=== PATIENT | male | born 1965 | race African-American/Black ===

== ENCOUNTER → 2016-03-17 | Day surgery (SDC) | payer OTHER ==
[2016-03-17] VITALS (8 sets, daily range): BP systolic 119–158; BP diastolic 47–97
[~2016-03-17] VITALS: Ht 198.1 cm; Wt 88.5 kg
[~2016-03-17] MED LIST: LR 1000ml 1,000 ML IVLG SCH; LR 1000ml ONE; Lidocaine 1% MPF 10mg/ml 5ml ONE; MEGA MULTI FOR1 EAC1 PO; Propofol 10mg/ml 20ml IV ONE
--- NOTE | 2016-03-17 08:49 | Short Stay Surgery H&P ---
History of Present Illness History of Present Illness Chief Complaint see H&P HPI Alan Garcia is a 50 year old male who was admitted on for Colon Screening Patient History Allergies: Coded Allergies: NO KNOWN ALLERGIES (Verified Allergy, Unknown, 03/17/16) PAST MEDICAL HISTORY: Past Surgeries: Social History: Medication History Scheduled Mv-Mn/Fa/Lycopene/Lut/Hb#178 (Neto Multi For Men Tablet), 1 EACH PO DAILY, ( Reported) Physical Exam Vital Signs Last Vital Signs Date Time Temp Pulse Resp B/P Pulse Ox O2 Delivery O2 Flow Rate FiO2 03/17/16 07:37 98.2 69 17 149/88 98 Room Air Plan Attestation Are the patient's medical conditions optimized for surgery? DENNIS HODGES Mar 17, 2016 08:49
--- NOTE | 2016-03-17 08:50 | Pre-Procedure Note/Attestation ---
Pre-Procedure Note/Attestation Complete Prior to Procedure Planned Procedure: not applicable Procedure Narrative: EGD/Colon Indications for Procedure Pre-Operative Diagnosis: Heme (+), screen Attestation I attest that I discussed the nature of the procedure; its benefits; risks and complications; and alternatives (and the risks and benefits of such alternatives ), prior to the procedure, with the patient (or the patient's legal support representative). I attest that, if there was a reasonable possibility of needing a blood transfusion, the patient (or the patient's legal support representative) was given the [facility] standardized written summary, pursuant to the [place] Blood Safety Act ([place] Health and Safety Code # 1645, as amended). I attest that I re-evaluated the patient just prior to the surgery and that there has been no change in the patient's H&P, except as documented below: DENNIS HODGES Mar 17, 2016 08:50
--- NOTE | 2016-03-17 09:24 | Immediate Post-Op Evaluation ---
Immediate Post-Op Evalulation Immediate Post-Op Evalulation Procedure: EGD/ Colonoscopy with biopsy Date of Evaluation: Mar 17, 2016 Time of Evaluation: 09:23 IV Fluids: 300ml Blood Products: none Estimated Blood Loss: none Urinary Output: due to void Blood Pressure Systolic: 109 Blood Pressure Diastolic: 64 Pulse Rate: 60 Respiratory Rate: 16 O2 Sat by Pulse Oximetry: 99 Temperature (Fahrenheit): 98 Pain Score (1-10): 0 Nausea: No Vomiting: No Complications none Patient Status: awake, reacts Hydration Status: adequate Drug: n/a ENA ESPINOZA D.O. Mar 17, 2016 09:24
--- NOTE | 2016-03-17 09:26 | Anethesia Preoperative Eval ---
Anesthesia Pre-op PMH/ROS General Date of Evaluation: Mar 17, 2016 Time of Evaluation: 08:45 Anesthesiologist: Kirsten ASA Score: ASA 1 Mallampati Score Class I : Soft palate, uvula, fauces, pillars visible Class II: Soft palate, uvula, fauces visible Class III: Soft palate, base of uvula visible Class IV: Only hard plate visible Mallampati Classification: Class II Surgeon: Theresa Diagnosis: heme positive stool/screening Surgical Procedure: EGD/Colonoscopy Anesthesia History: none Family History: no anesthesia problems Allergies: Coded Allergies: NO KNOWN ALLERGIES (Verified Allergy, Unknown, 03/17/16) Medications: see eMAR Past Medical History Cardiovascular: Denies: CAD, HTN, GA, arrhythmia, other, valve dz Pulmonary: Denies: COPD, YOLA, asthma, other Gastrointestinal/Genitourinary: Denies: CRI, ESRD, GERD, other Neurologic/Psychiatric: Denies: CVA, TIA, dementia, depression/anxiety, other Endocrine: Denies: DM, hypothyroidism, other, steroids HEENT: Denies: KAW (L), KAW (R), cataract (L), cataract (R), glaucoma, other Hematology/Immune: Denies: DVT, anemia, bleeding disorder, other PMH Narrative: healthy PSxH Narrative: knee scope Anesthesia Pre-op Phys. Exam Physician Exam Last Vital Signs Date Time Temp Pulse Resp B/P Pulse Ox O2 Delivery O2 Flow Rate FiO2 03/17/16 07:37 98.2 69 17 149/88 98 Room Air Constitutional: NAD Neurologic: CN 2-12 intact Cardiovascular: RRR Respiratory: CTA Gastrointestinal: S/NT/ND Airway Exam Mallampati Score: Class II MO: full ROM: full Teeth: intact Dentures: no lower, no upper ENA ESPINOZA D.O. Mar 17, 2016 09:26
--- NOTE | 2016-03-17 09:33 | 48 Hour Post Anesthesia Eval ---
Post Anesthesia Evaluation Procedure: EGD/ Colonoscopy with biopsy Date of Evaluation: Mar 17, 2016 Time of Evaluation: 09:31 Blood Pressure Systolic: 119 0: 47 Pulse Rate: 60 Respiratory Rate: 16 Temperature (Fahrenheit): 97.3 O2 Sat by Pulse Oximetry: 99 Airway: patent Nausea: No Vomiting: No Pain Intensity: 0 Hydration Status: adequate Cardiopulmonary Status: stable Mental Status/LOC: patient returned to baseline Follow-up Care/Observations: as per GI Post-Anesthesia Complications: none ENA ESPINOZA D.O. Mar 17, 2016 09:33
--- NOTE | 2016-03-17 09:44 | Endoscopy Procedure Note ---
Endoscopy Procedure Note Indication for Procedure: Heme (+), screen Procedures Performed: colonoscopy Operative Findings/Diagnosis: ED nl, 2 colon polyps, mod rhoids Specimen: yes Pt Tolerated Procedure Well: Yes Estimated Blood Loss: none Anesthesiologist: see report Anesthesia: MAC Medication Given: see anesthesia record Implant(s) used?: No 50 yrs or older w/o bx or poly: Not Applicable 10yrs. F/U not recommended: No If not recommended, why?: Above average risk 10 yrs. F/U needed: No 18 years or older w/prev. colo: No <3yrs. since last colonoscopy: No Med reason:<3 yrs.: System Reason:<3 yrs.: Last colonoscopy >= to 3yrs: Yes DENNIS HODGES Mar 17, 2016 09:44
--- NOTE | 2016-03-17 09:53 | Brief Operative Note ---
Immediate Post Operative Note Operative Note Chief Complaint: screen, heme (+) Pre-op Diagnosis: Heme (+), screen Procedure: EGD/Colon Post-op Diagnosis: HH, tics, rhoid, polyps Surgeon: yelitza Anesthesiologist: See list Anesthesia: MAC Specimen: yes Complications: none Condition: stable Estimated Blood Loss: none Drains: none Implant(s) used?: Yes DENNIS HODGES Mar 17, 2016 09:53
--- NOTE | 2016-03-17 23:17 | Operative Note - Dictated ---
DATE OF OPERATION: 03/17/2016 PROCEDURE: Upper gastrointestinal endoscopy as well as colonoscopy with biopsy. SURGEON: Damaris Cardenas M.D. ANESTHESIA: Please see the separate notes for details. PRE-ENDOSCOPIC DIAGNOSES: 1. Heme-positive stools. 2. Need for screening colonoscopy. POST-ENDOSCOPIC DIAGNOSES: 1. A 2 cm hiatal hernia. 2. Otherwise normal upper gastrointestinal endoscopy. 3. Two diminutive polyps seen in the colon and removed with biopsy and snare polypectomy as described below. 4. Mild left-sided diverticulosis. 5. Moderate internal hemorrhoids. PROCEDURE: The procedure, its risks, indications, alternatives, and possible complications were explained to the patient and informed consent was obtained. The patient was then sedated in the left lateral decubitus position. A diagnostic upper endoscope was introduced through the oropharynx and advanced to the duodenum without difficulty. The endoscope was then gradually withdrawn and mucosa examined carefully. Examination of the upper gastric mucosa revealed an incidental 2 cm hiatal hernia. There are no ulcers or arteriovenous malformations or any other abnormalities were identified. The endoscope was removed. The colonoscope was introduced in the rectum after rectal exam was done and advanced to the cecum without difficulty. The cecum was identified by the appearance of the ileocecal valve. The colonoscope was then gradually withdrawn and the mucosa examined carefully. Examination of colonic mucosa revealed mild left-sided diverticulosis. There was a diminutive polyp in the descending colon, which was removed with a snare polypectomy and a smaller one in the rectum, which was removed with biopsy forceps. Retroflexed view of the rectum revealed mild to moderate internal hemorrhoids. The colonoscope was removed. The patient was sent to recovery in good condition. COMPLICATIONS: None. RECOMMENDATIONS: 1. Follow up biopsy results. 2. High-fiber diet. 3. Outpatient followup. 4. Consider capsule endoscopy to evaluate the small bowel. Damaris Cardenas M.D. DR: TANYA JOB#: [id number] CC:
== END | disposition home or self-care (01) ==
LOC: GAS 07:11
DX: Z12.11 Encounter for screening for malignant neoplasm of colon (principal); D12.8 Benign neoplasm of rectum; D12.4 Benign neoplasm of descending colon; K57.30 Diverticulosis of large intestine without perforation or abscess without bleeding; K64.8 Other hemorrhoids; R19.5 Other fecal abnormalities; K44.9 Diaphragmatic hernia without obstruction or gangrene; R03.0 Elevated blood-pressure reading, without diagnosis of hypertension; I45.10 Unspecified right bundle-branch block; E55.9 Vitamin D deficiency, unspecified
CPT/HCPCS: 43239; 45380; 45385; J2704; J7120; 94003; 94150